=== PATIENT | female | born 1955 ===

== ENCOUNTER 2023-05-01 08:45 | Outpatient (REF) | payer MEDICARE, SELFPAY ==
--- NOTE | ~2023-05-01 | XR_ITS ---
EXAMINATION: XR SHOULDER, RIGHT CLINICAL INFORMATION: Pain. COMPARISON: None available. TECHNIQUE: AP neutral and scapular Y views of the right shoulder are submitted. FINDINGS: Bony alignment and mineralization are normal. The glenohumeral joint is intact. The acromioclavicular and coracoclavicular intervals are normal. 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 No fracture or dislocation is seen. There is cortical irregularity of the greater tuberosity of the proximal right humerus. There is no focal soft tissue calcifications or foreign body. No right pneumothorax is seen. XR/XR shoulder RT min 2V IMPRESSION: 1. No fracture or dislocation is seen. 2. 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 3. There is cortical irregularity of the greater tuberosity of the proximal right humerus, suggesting possible rotator cuff impingement. No matt rotator cuff calcific tendinitis is noted. EXAMINATION: XR SHOULDER, LEFT CLINICAL INFORMATION: Pain. COMPARISON: None available. TECHNIQUE: AP neutral and scapular Y views of the left shoulder are submitted. FINDINGS: Bony alignment and mineralization are normal. The glenohumeral joint is intact. The acromioclavicular and coracoclavicular intervals are normal. There is mild cortical irregularity of the greater tuberosity of the proximal left humerus. No fracture or dislocation is seen. There is no soft tissue calcification or foreign body. No left pneumothorax is seen. IMPRESSION: 1. No fracture or dislocation is seen. 2. There is mild cortical irregularity of the greater tuberosity proximal left humerus, suggesting rotator cuff impingement. No matt rotator cuff calcific tendinitis is noted.
--- NOTE | ~2023-05-01 | XR_ITS ---
EXAMINATION: XR SHOULDER, RIGHT CLINICAL INFORMATION: Pain. COMPARISON: None available. TECHNIQUE: AP neutral and scapular Y views of the right shoulder are submitted. FINDINGS: Bony alignment and mineralization are normal. The glenohumeral joint is intact. The acromioclavicular and coracoclavicular intervals are normal. 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 No fracture or dislocation is seen. There is cortical irregularity of the greater tuberosity of the proximal right humerus. There is no focal soft tissue calcifications or foreign body. No right pneumothorax is seen. XR/XR shoulder LT min 2V IMPRESSION: 1. No fracture or dislocation is seen. 2. 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 3. There is cortical irregularity of the greater tuberosity of the proximal right humerus, suggesting possible rotator cuff impingement. No matt rotator cuff calcific tendinitis is noted. EXAMINATION: XR SHOULDER, LEFT CLINICAL INFORMATION: Pain. COMPARISON: None available. TECHNIQUE: AP neutral and scapular Y views of the left shoulder are submitted. FINDINGS: Bony alignment and mineralization are normal. The glenohumeral joint is intact. The acromioclavicular and coracoclavicular intervals are normal. There is mild cortical irregularity of the greater tuberosity of the proximal left humerus. No fracture or dislocation is seen. There is no soft tissue calcification or foreign body. No left pneumothorax is seen. IMPRESSION: 1. No fracture or dislocation is seen. 2. There is mild cortical irregularity of the greater tuberosity proximal left humerus, suggesting rotator cuff impingement. No matt rotator cuff calcific tendinitis is noted.
== END 2023-05-01 08:46 | disposition home or self-care (01) ==
LOC: HO.HOSX 08:45
PROVIDERS: Visit Provider Orthopaedic Surgery
DX: M25.511 Pain in right shoulder (principal); M25.512 Pain in left shoulder
CPT/HCPCS: 73030; 99202

== ENCOUNTER 2023-05-01 09:00 | Outpatient (AMB) | payer MEDICARE, SELFPAY ==
--- NOTE | 2023-05-01 09:01 | MHC.OFFVIS ---
Intake Vital Signs 05/01/23 09:14 Height 5 ft 2.5 in Weight 130 lb BMI 23.4 Intake Visit Reasons: [employer]-B/L shoulder pain-right shoulder worse Intake Note: Carmela is a 67 year old Right hand dominate female who presents as a new patient with bilateral shoulder pains and weakness, right greater than left. The patient describes her right shoulder pain as sharp and severe in nature. She did undergo right shoulder ?rotator cuff repair surgery? in January of [address] Houston. The patient states that she got mild relief from that procedure. She states that over the last year she has had difficulty lifting her right hand above shoulder height. She denies any fevers or chills. She has tried Tylenol and anti-inflammatory medicines which gave her minimal relief. She has also had injections in the past which gave her no relief. Allergies lisinopril Adverse Reaction (Intermediate, Verified 05/01/23 09:23) swelling Sulfa (Sulfonamide Antibiotics) Adverse Reaction (Intermediate, Verified 05/01/23 09:23) stomach pains Medication List - Last Reconciled 05/01/23 by Huy Donato MD albuterol sulfate 90 mcg/actuation 2 puffs inhalation Q6H PRN amlodipine 2.5 mg PO DAILY gabapentin 600 mg PO BEDTIME lorazepam 0.5 mg PO BEDTIME PRN losartan 50 mg PO DAILY ocrelizumab (Ocrevus) 600 mg IV [id number] venlafaxine 75 mg PO DAILY vibegron (Gemtesa) 75 mg PO DAILY PFSH Surgical History (Updated 05/01/23 @ 09:30 by Avelina Vásquez CMA) History of foot surgery History of foot surgery Hx of shoulder surgery Physical Exam Vital Signs: BMI result Body Mass Index 23.4 Const Other: Well-nourished well-developed very friendly female awake alert and oriented x3 in no acute distress Extrem Other: Bilateral upper extremity examination shows good capillary refill, no skin lesions noted, normal sensation light touch Right shoulder examination shows decreased range of motion when compared to her left shoulder, 4+ out of 5 strength with supraspinatus testing, positive impingement signs, tenderness over her acromioclavicular joint, no instability Left shoulder examination shows 4+ out of 5 strength with supraspinatus testing, positive impingement signs, tenderness over her acromioclavicular joint, no instability Results Reviewed Results Reviewed: X-rays of the patient's right shoulder show bony change consistent with distal clavicle excision, a type 2 acromion, no acute bony abnormalities X-rays of the patient's left shoulder show severe acromioclavicular joint narrowing, a type 2 acromion, no acute bony abnormalities Assessment & Plan Assessment & Plan (1) Right shoulder pain: Code(s): M25.511 - Pain in right shoulder (2) Left shoulder pain: Code(s): M25.512 - Pain in left shoulder Plan Ms. Quigley presents with progressively worsening bilateral shoulder pains and weakness, right greater than left, possibly due to full-thickness rotator cuff tearing. Thus, I will send the patient for an MRI of her right shoulder for further evaluation of her rotator cuff tendons. I will see her back once the MRI is completed to discuss the findings and treatment options. She will continue with her range of motion exercises in the meantime to prevent stiffness. Feel free to call me at any time should questions regarding her orthopedic management arise. Thank you very much for asking me to see this very friendly patient. I spent 22 minutes in reviewing the patient's records and imaging studies, seeing the patient and documenting in the medical record. Orders: Orders XR shoulder LT min 2V Today M25.512 - Pain in left shoulder XR shoulder RT min 2V Today M25.511 - Pain in right shoulder MR shoulder RT wo con Today M75.101 - Unspecified rotator cuff tear or rupture of right shoulder, not specified as traumatic Coding Level of Care Code New Pt Level 2 (22678) Diagnoses Right shoulder pain M25.511 Left shoulder pain M25.512
[2023-05-01 09:14] VITALS: BMI 23.4
== END 2023-05-01 09:45 | disposition home or self-care (01) ==
PROVIDERS: PCP Pediatrics; Visit Provider Orthopaedic Surgery
DX: M25.511 Pain in right shoulder (principal); M25.512 Pain in left shoulder
CPT/HCPCS: 99202

== ENCOUNTER 2023-06-07 09:08 | Outpatient (AMB) | payer MEDICARE, SELFPAY ==
[2023-06-07 09:10] VITALS: BMI 23.4
--- NOTE | 2023-06-07 09:10 | A.OFFVIS_ITS ---
Intake Vital Signs 06/07/23 09:10 Height 5 ft 2.5 in Weight 130 lb BMI 23.4 Intake Visit Reasons: OV- RT Shoulder MRI Review Intake Note: Carmela is a 67 year old Right hand dominate female who presents with bilateral shoulder pains and weakness, right greater than left. The patient describes her right shoulder pain as sharp and severe in nature. She did undergo right shoulder ?rotator cuff repair surgery? in January of [address] [place]. The patient states that she got mild relief from that procedure. She states that over the last year she has had difficulty lifting her right hand above shoulder height. She denies any fevers or chills. She has tried Tylenol and anti- inflammatory medicines which gave her minimal relief. She has also had injections in the past which gave her no relief. Allergies lisinopril Adverse Reaction (Intermediate, Verified 06/07/23 09:12) swelling Sulfa (Sulfonamide Antibiotics) Adverse Reaction (Intermediate, Verified 06/07/23 09:12) stomach pains Medication List - Last Reconciled 06/07/23 by Huy Donato MD albuterol sulfate 90 mcg/actuation 2 puffs inhalation Q6H PRN amlodipine 2.5 mg PO DAILY amoxicillin-pot clavulanate 875-125 mg 1 tab PO BID gabapentin 600 mg PO BEDTIME lorazepam 0.5 mg PO BEDTIME PRN losartan 50 mg PO DAILY ocrelizumab (Ocrevus) 600 mg IV [id number] venlafaxine 75 mg PO DAILY vibegron (Gemtesa) 75 mg PO DAILY PFSH Surgical History (Updated 05/01/23 @ 09:30 by Avelina Vásquez CMA) History of foot surgery History of foot surgery Hx of shoulder surgery Social History (Updated 06/07/23 @ 09:13 by Avelina Vásquez CMA) Patient Tobacco Use Status: Never used Tobacco Current occupational status: retired Current occupation: right hand dominate Physical Exam Vital Signs: BMI result Body Mass Index 23.4 Const Other: Well-nourished well-developed very friendly female awake alert and oriented x3 in no acute distress Extrem Other: Bilateral upper extremity examination shows good capillary refill, no skin lesions noted, normal sensation light touch Right shoulder examination shows decreased range of motion when compared to her left shoulder, 4 out of 5 strength with supraspinatus testing, positive impingement signs, tenderness over her acromioclavicular joint, no instability Results Reviewed Results Reviewed: MRI of the patient's right shoulder shows moderate acromioclavicular joint narrowing, a type 2 acromion, signal change within the supraspinatus tendon due to partial-thickness tearing versus a small recurrent full-thickness tear Assessment & Plan Assessment & Plan (1) Right shoulder pain: Code(s): M25.511 - Pain in right shoulder Plan Mrs. Quigley presents with right shoulder pain and weakness due to impingement syndrome, acromioclavicular joint arthritis and a partial-thickness rotator cuff tear versus a small recurrent full-thickness tear. I had a lengthy discussion with the patient regarding the treatment options. At this point she appears to be failing continued non operative treatments. The risks and benefits of right shoulder revision surgery were discussed at length with the patient. The patient is considering undergoing surgery later this year. She will contact my office to pick a surgery date if she chooses to do so. Surgery will most likely involve right shoulder diagnostic arthroscopy with distal clavicle excision, acromioplasty and rotator cuff repair should a full-thickness tear be found at the time of her surgery. The patient will continue with her activity modifications in the meantime. Feel free to call me at any time should questions regarding her orthopedic management arise. I spent 22 minutes in reviewing the patient's records and imaging studies, seeing the patient and documenting in the medical record. Coding Level of Care Code Est Pt Level 2 (67127) Diagnoses Right shoulder pain M25.511
== END 2023-06-07 09:28 | disposition home or self-care (01) ==
PROVIDERS: PCP Pediatrics; Visit Provider Orthopaedic Surgery
DX: M25.511 Pain in right shoulder (principal)
CPT/HCPCS: 99213

== ENCOUNTER → 2023-06-07 09:08 | Outpatient (BNVA) | payer MEDICARE, SELFPAY | PROVIDERS: PCP Pediatrics; Visit Provider Orthopaedic Surgery | DX: M25.511 Pain in right shoulder (principal); M25.512 Pain in left shoulder | CPT/HCPCS: 99212 ==